=== PATIENT | male | born 1995 | race Caucasian/White ===

== ENCOUNTER 2017-09-22 21:38 | Emergency (ER) | payer SELFPAY ==
[~2017-09-22] VITALS: Ht 170.2 cm; Wt 70.3 kg
[2017-09-22 21:46] VITALS: BP 150/67; Ht 170.2 cm; Wt 70.3 kg
== END 2017-09-22 22:40 | disposition left against medical advice (07) ==
LOC: ED 21:38
DX: Z53.21 Procedure and treatment not carried out due to patient leaving prior to being seen by health care provider (principal)

== ENCOUNTER 2020-03-14 01:36 | Emergency (ER) | payer SELFPAY ==
[~2020-03-14] VITALS: Ht 170.2 cm; Wt 59.0 kg
[2020-03-14 01:47] VITALS: Ht 170.2 cm; Wt 59.0 kg
[2020-03-14 05:28] VITALS: BP 107/48
== END 2020-03-14 05:28 | disposition home or self-care (01) ==
LOC: ED 01:36
DX: S76.911A Strain of unspecified muscles, fascia and tendons at thigh level, right thigh, initial encounter (principal); F17.210 Nicotine dependence, cigarettes, uncomplicated; Z88.0 Allergy status to penicillin; Y04.2XXA Assault by strike against or bumped into by another person, initial encounter; Y93.89 Activity, other specified; Y92.89 Other specified places as the place of occurrence of the external cause; Y99.8 Other external cause status